=== PATIENT | female | born 1990 | race African-American/Black ===

== ENCOUNTER 2016-11-09 11:31 | Emergency (ER) | payer OTHER ==
[~2016-11-09] VITALS: Ht 157.5 cm; Wt 100.0 kg
[~2016-11-09 11:31] MED LIST: Z.0.BCPILL PO
[2016-11-09 11:34] VITALS: BP 166/94; PULSE 122; RESP 15; TEMP 98.4; O2SAT 100
[2016-11-09] MEDS ORDERED: PROPARACAINE HCL 0.5% OPHT SOLN 15 ML BTL EACH EYE ONE (12:15)
[2016-11-09] MEDS ORDERED: TRIMSOL EACH EYE (12:29)
[2016-11-09] MEDS ORDERED: CLIN1CAP6 PO (12:29)
--- NOTE | 2016-11-09 12:32 | PD ---
HPI Chief Complaint: Eye Problems/Injury Time Seen by Provider: 12:00 Travel History International Travel<30 days: No Contact w/Intl Traveler<30days: No Traveled to known affect area: No History of Present Illness HPI 26-year-old female with chief complaint left eye lid swelling and pain 2 weeks. Patient reports she's been on Bactrim and erythromycin ointment without improvement. She reports the pain and swelling of the eyelid is worse today. She denies fever or chills. She denies visual changes within the eye. Pain scale 3/10. No aggravating or alleviating factors. PFSH Past Medical History Medical History: Denies Significant Hx Depression: Yes Cancer: No Cardiovascular Problems: No Diabetes: No Diminished Hearing: No Endocrine: No Genitourinary: Yes (uti's) Hepatitis: No Hiatal Hernia: No Immune Disorder: No Musculoskeletal: No Neurologic: No Psychiatric: No Reproductive: No Respiratory: No Immunizations Current: No Thyroid Disease: No Tetanus Vaccination: > 5 Years Influenza Vaccination: No ?: Not : 2 Miscarriage: 1 Dilation and Curettage (D&C): Yes (R/T MISCARRIAGE) Past Surgical History AICD: No Section: Yes Gynecologic Surgery: Yes (d+c, c section) Joint Replacement: No Oral Surgery: Yes (lt) Pacemaker: No Other Surgery: Yes (D&C) Social History Alcohol Use: Yes (rare) Tobacco Use: Yes (1 pk q 4 days) Substance Use: No Allergies-Medications (Allergen,Severity, Reaction): Coded Allergies: amoxicillin (Verified Allergy, Severe, Anaphylaxis, 11/09/16) penicillin G (Verified Allergy, Intermediate, breathing issues, rashes, ) acetaminophen (Unverified Allergy, Mild, itching, 11/09/16) clindamycin (Verified Allergy, Mild, rash, 11/09/16) hydrocodone (Unverified Allergy, Mild, itching, 11/09/16) oxycodone (Verified Allergy, Unknown, RASH, VOMITING, 11/09/16) Reported Meds & Prescriptions Reported Meds & Active Scripts Active Polymyxin B-Trimethoprim Opth Drops 10,000-0.1 Unit/Ml-% Soln 1 Drop EACH EYE Q6HR Clindamycin (Clindamycin HCl) 300 Mg Cap 300 Mg PO Q6H Review of Systems Except as stated in HPI: all other systems reviewed are Neg Physical Exam Narrative GENERAL: Well-nourished, well-developed patient. SKIN: Focused skin assessment warm/dry. Patient has 3 small indurated abscesses within the crease of the buttocks. No areas of fluctuance. HEAD: Normocephalic. EYES: No scleral icterus. No injection or drainage. Pupils are equal and reactive to light. Stye noted to left lower lid with moderate amount of swelling to the lower lid. EOMs intact and painless. NECK: Supple, trachea midline. No JVD or lymphadenopathy. CARDIOVASCULAR: Regular rate and rhythm without murmurs, gallops, or rubs. RESPIRATORY: Breath sounds equal bilaterally. No accessory muscle use. GASTROINTESTINAL: Abdomen soft, non-tender, nondistended. MUSCULOSKELETAL: No cyanosis, or edema. BACK: Nontender without obvious deformity. No CVA tenderness. Data Data Last Documented VS Vital Signs Date Time Temp Pulse Resp B/P Pulse Ox O2 Delivery O2 Flow Rate FiO2 11/09/16 11:34 98.4 122 15 166/94 100 Orders Proparacaine 0.5% Opth Soln (Alcaine 0.5 (11/09/16 12:15) MDM Medical Decision Making Medical Screen Exam Complete: Yes Emergency Medical Condition: Yes Differential Diagnosis Stye, abscess, periorbital cellulitis Narrative Course 26-year-old female with chief complaint left eye lid swelling and pain 2 weeks. Patient reports she's been on Bactrim and erythromycin ointment without improvement. She reports the pain and swelling of the eyelid is worse today. On exam she has a stye to the left lower lid with moderate amount of lid swelling and erythema. EOMs are painless and intact. Patient has normal visual acuity. Patient also has multiple early abscesses in the buttocks region which she also reports her not improving with Bactrim. Patient will be instructed to stop the Bactrim started on clindamycin and be placed on polymyxin drops. She is instructed to follow-up with ophthalmology or PCP. Patient verbalizes understanding and agrees to plan. Discussed with patient allergy information. Patient reports she did not have an allergy to clindamycin as stated in the EMR. She reports that she has taken clindamycin in the past and it caused her to have "pimples" therefore may have been listed as an allergy. She denies having a true allergic reaction to the antibiotic. Diagnosis Primary Impression: Abscess Additional Impression: Stye external Qualified Code: H00.015 - Hordeolum externum of left lower eyelid Referrals: Sales Account Coordinator Primary Care Physician Additional Instructions: Take the antibiotics as prescribed. Apply warm compresses to the left eye several times per day. Take [id number] Motrin [id number] milligrams as needed for pain. Follow-up with her primary care doctor. Scripts Polymyxin B-Trimethoprim Opth Drops 10,000-0.1 Unit/Ml-% Soln1 Drop EACH EYE Q6HR #1 BOTTLE Prov:Christina Angel 11/09/16 Clindamycin 300 Mg [id number] Mg PO Q6H #40 CAP Prov:Christina Angel 11/09/16 Disposition: 01 DISCHARGE HOME Condition: Stable Christina Angel Nov 09, 2016 12:32
== END 2016-11-09 12:50 | disposition home or self-care (01) ==
LOC: PHED 11:31
DX: L02.31 Cutaneous abscess of buttock (principal); H00.015 Hordeolum externum left lower eyelid; F17.210 Nicotine dependence, cigarettes, uncomplicated
CPT/HCPCS: 99284